=== PATIENT | male | born 1975 | race Two or more races ===

== ENCOUNTER 2022-08-11 01:31 | Emergency (ER) | payer OTHER ==
[~2022-08-11] VITALS: Ht 172.7 cm; Wt 103.4 kg
[2022-08-11] MEDS ORDERED: MIRTAZAPINE15 MG PO (01:54)
[2022-08-11] MEDS ORDERED: LAMICTAL200 MG PO (01:54)
[2022-08-11] MEDS ORDERED: ABILIFY5 MG (01:55)
[2022-08-11] MEDS ORDERED: ATOMOXETINE HCL80 MG PO (01:55)
[2022-08-11] MEDS ORDERED: DOLOGESIC-DF 51 EACH PO (06:04)
== END 2022-08-11 06:08 ==
LOC: ER 01:31
DX: R51.9 Headache, unspecified (principal); Z88.0 Allergy status to penicillin